=== PATIENT | male | born 1950 | race African-American/Black ===

== ENCOUNTER 2017-08-27 15:36 | Outpatient (CLI) | payer MEDICARE, OTHER ==
--- NOTE | 2017-08-27 16:17 | RAD ---
THREE VIEW LUMBAR SPINE SERIES: COMPARISON: 04/02/14. INDICATION: Low back pain. FINDINGS: There is multilevel degenerative change, limiting assessment on the basis of the provided lateral vie ws. Neutral, extension, flexion, and lateral views are submitted. Referencing 04/02/14 exam, alignm ent is grossly stable. There is no evidence for interval significant malalignment, and no significan t translational motion is seen. IMPRESSION: 1. No interval acute malalignment or translational motion. 2. Multilevel degenerative change, progressive, although limited in assessment by provided lateral v iews. POS: [facility]
== END 2017-08-27 15:37 | disposition home or self-care (01) ==
LOC: TBSIIMAG 15:36
PROVIDERS: ATTEND Neurological Surgery
DX: M48.061 Spinal stenosis, lumbar region without neurogenic claudication (principal); M54.5 Low back pain; M47.896 Other spondylosis, lumbar region
CPT/HCPCS: 72100

== ENCOUNTER 2018-07-01 11:18 | Inpatient (IN) | payer MEDICARE, OTHER ==
[2018-07-01 12:06] LABS: INR-International Normal Ratio 1.1; PTT 29.2 SEC (22.9-36.1)
--- NOTE | 2018-07-01 13:10 | RAD ---
AP VIEW ABDOMEN: HISTORY: Sigmoid volvulus. COMPARISON: Comparison is made to previous exam from earlier in the day on 07/01/2018. FINDINGS: AP view abdomen demonstrates radiopaque contrast in the ascending colon and rectum. The tortuous por tion of the sigmoid remains and is unchanged in shape. IMPRESSION: Abnormally dilated loop of upward migrating sigmoid colon remains and is unchanged. POS: [facility]
[2018-07-01] MEDS ORDERED: PROPOFOL 200 MG/20 ML VIAL ONE (16:02)
[2018-07-01] MEDS ORDERED: Ondansetron PF 4 MG/2 ML Vial ONE (16:02)
[2018-07-01] MEDS ORDERED: Lidocaine 1% PF 5 ML VIAL ONE (16:02)
[2018-07-01] MEDS ORDERED: Succinylcholine Chloride 20 MG/ML 10 ml SYRINGE FS ONE (16:02)
--- NOTE | 2018-07-01 16:14 | CON ---
DATE OF CONSULTATION: 07/01/2018 CHIEF COMPLAINT: Abdominal pain. HISTORY OF PRESENT ILLNESS: Mr. Fair is a 67-year-old man, who presented with acute onset of lower abdominal pain at 3 o'clock this morning. The pain became severe, so he went to the local emergency room, where a CT scan was performed. This showed dilated sigmoid colon with evidence of volvulus. He received pain medicine in the ER, he is feeling a bit better. He has had no nausea or vomiting. His last bowel movement was last night a couple of hours before onset of the pain. He has had no blood in the stool. He did have a colonoscopy back in November 2016 with a couple of small adenomas removed. The sigmoid colon was noted to be dilated at that time. PAST MEDICAL HISTORY: Chronic back pain, hypertension, sleep apnea, prostate cancer, and arthritis. PAST SURGICAL HISTORY: Prostate surgery, hernia repair, and knee surgery. FAMILY HISTORY: Negative for GI malignancy. SOCIAL HISTORY: No alcohol, tobacco, or drugs. ALLERGIES: PENICILLIN. MEDICATIONS: Prior to admission include: 1. Etodolac. 2. Flonase. 3. Krill oil. 4. Claritin. 5. Topiramate. 6. Aspirin. 7. Montelukast. REVIEW OF SYSTEMS: Negative x10 systems reviewed, except as stated in history of present illness. PHYSICAL EXAMINATION: VITAL SIGNS: Pulse 75, blood pressure 113/72, and temperature 97.8. GENERAL: He is in no acute distress. Alert and oriented x3. HEENT: Eyes have no scleral icterus. Oropharynx is clear without lesions. No cervical or supraclavicular lymphadenopathy. LUNGS: Clear to auscultation bilaterally. HEART: Regular rate and rhythm without murmur. ABDOMEN: Soft, nontender, and nondistended. Bowel sounds are present. EXTREMITIES: No lower extremity edema. Cranial nerves are grossly intact. LABORATORY DATA: White blood cell count 6.2, hemoglobin 16.2, platelets 197. INR 1.1. Creatinine 1.23. Bilirubin 0.4, AST 25, ALT 19, alkaline phosphatase 92, albumin is 4.4, and lipase 10. IMPRESSION: Acute lower abdominal pain with possible sigmoid volvulus. CT scan is suggestive of volvulus as this followup x-ray. He is not obstructed and he does not appear to have vascular involvement at this point. Of note, at time of colonoscopy in November 2016, he was noted to have a markedly dilated sigmoid colon at that time. RECOMMENDATIONS: We will plan flex sig now to detorse the volvulus. If endoscopy reveals no evidence of torsion and just chronically dilated colon, then we can consider referral for outpatient anorectal manometry and then colorectal consultation for possible resection at that point. If there is evidence of torsion by the colonoscopy now, then I will leave a decompression tube in place and he could likely proceed with colon resection more immediately. Job ID: [id number]
--- NOTE | 2018-07-01 16:26 | CON ---
DATE OF CONSULTATION: 07/01/2018 REQUESTING PHYSICIAN: Dr. Stewart Carlos. HISTORY: This is a 67-year-old man, who was seen earlier today at the emergency department in [place], [place]. The patient presented with complaint of insidious onset severe crampy abdominal pain. The pain reportedly started approximately 0300 hours and became more frequent, this time extending to the epigastrium. The patient denied any emesis, however, admitted some nausea. He denies any change in his bowel habits. The patient denies any fevers or chills. Workup included first abdominal x-ray followed by CT scan of the abdomen and pelvis, both of which were suggestive of acute sigmoid colon volvulus. The patient was transferred to [facility] in [place], [place], for upper level workup and care. At the time of my evaluation, the patient reports his pain now as 3/10 in contrast to 10/10 at maximum intensity. He has not passed any flatus since yesterday. Last bowel movement was also yesterday. He reports chronic constipation, requiring stool softeners at baseline. PAST MEDICAL HISTORY: Pertinent for essential hypertension and chronic constipation. He also has a history of chronic back pain. PAST SURGICAL HISTORY: Significant for right knee arthroplasty, prostatectomy, and left inguinal herniorrhaphy. SOCIAL HISTORY: The patient admits to occasional intake of ethanol in moderate amount. He denies any cigarette smoking or illicit drug abuse. CURRENT MEDICATIONS: 1. Claritin 10 mg p.o. daily for seasonal allergies. 2. He takes aspirin 81 mg p.o. daily. 3. Montelukast 10 mg p.o. daily. 4. Etodolac 200 mg p.o. b.i.d. 5. Topiramate 25 mg p.o. b.i.d. ALLERGIES: TO PENICILLIN. REVIEW OF SYSTEMS: Ten-point review of systems essentially unremarkable except as stated in past medical history and chief complaint. PHYSICAL EXAMINATION: GENERAL: This reveals a 67-year-old normally developed man, who is otherwise coherent and interactive and appears stated age. The patient is alert and oriented x3. He appears to be in no acute distress at the time of my evaluation. VITAL SIGNS: Include blood pressure 133/85, pulse is 78, respiratory rate is 27, temperature 97.8 degrees Fahrenheit, and oxygen saturation 99% on room air. HEENT: Reveals normocephalic and atraumatic. Pupils are equal, round, and reactive to light and accommodation. HEART: Reveals regular rate and rhythm. No murmurs or gallops auscultated. LUNGS: Clear to auscultation bilaterally. Breathing, regular and nonlabored. ABDOMEN: Soft with moderate tenderness to palpation, which is mostly in the left upper quadrant. He has no gross rebound tenderness present. Liver and spleen nonpalpable below costal margin. He has a reducible umbilical hernia with no associated tenderness. GENITOURINARY: Reveals bilateral descended testicles. Normal male genitalia. He has a reducible left inguinal hernia. No associated tenderness present. EXTREMITIES: Reveal 2+ radial and pedal pulses bilaterally. No ankle edema is present. NEUROLOGIC: Reveals no focal deficits present. LABORATORY FINDINGS: Includes a CBC from [place] with 6200 white blood cells, hemoglobin and hematocrit 16.2 and 48.9 respectively. Platelet count is 197,000. Metabolic profile; sodium 143, potassium is 4.1, chloride is 112, bicarb is 22, BUN 18, creatinine is 1.23, and glucose is 126. Lactic acid is 1.1. Total bilirubin is 0.4, AST and ALT are 25 and 19 respectively. PTT and INR noted at 29.2 seconds and 1.1 respectively. I have personally reviewed the CT scan of the abdomen and pelvis. This reviews markedly dilated sigmoid colon, which is abnormally rotated to the left upper quadrant. There is no significant free fluid or pneumoperitoneum present. Also noted is an umbilical and a left inguinal hernia with no associated inflammation to suggest incarceration. IMPRESSION: 1. Acute abdominal pain, likely secondary to sigmoid colon volvulus. 2. Non-incarcerated umbilical and left inguinal hernias. RECOMMENDATIONS: 1. I agree with endoscopic evaluation and possible detorsion of the sigmoid colon volvulus. 2. I recommend that if clear demarcation of the sigmoid colon volvulus is established with redundant sigmoid colon, a bowel prep followed by sigmoidectomy and primary anastomosis will be warranted. 3. If, however, the distention extends to the level of the rectum, preoperative evaluation of the rectum with manometry plus or minus rectal biopsy to evaluate the motility of the rectum, which could be the etiology of this patient's obvious sigmoid colonic pseudo-obstruction. 4. Above findings and recommendations discussed with the patient, who indicated understanding of information given. 5. I answered his questions. Thank you again, Dr. Carlos, for allowing me the opportunity to participate in the care of this patient. Job ID: [id number]
[2018-07-01] MEDS ORDERED: Ondansetron ODT 4 MG TAB PO PRN (17:12)
[2018-07-01] MEDS ORDERED: Acetaminophen 325 MG TAB PO PRN (17:12)
[2018-07-01 17:21] VITALS: BMI 33.2
[2018-07-01] MEDS ORDERED: Morphine 4 MG/ML VIAL SLOW IVP PRN ×2 (17:21)
[2018-07-01] MEDS ORDERED: traMADol HCl 50 MG TAB PO PRN (17:21)
[2018-07-01] MEDS ORDERED: Cepastat Lozenges 1 LOZ PO PRN (17:22)
--- NOTE | 2018-07-01 17:57 | HP ---
PRIMARY CARE PROVIDER: Dr Arevalo CHIEF COMPLAINT: Abdominal pain. HISTORY OF PRESENT ILLNESS: Mr. Fair is a 67-year-old male with history of hypertension, not currently on medications; migraines; seasonal allergies; obstructive sleep apnea with CPAP at home; prostate cancer status post resection , who presents to the emergency room with a complaint of abdominal pain. The patient reports that for the past couple of days, his stomach has been bothering him. However, at 7:45 this morning, it became excruciating. He reports he was unable to walk without significant pain. He reports the pain is in the middle of the stomach, describes it as burning sensation with associated nausea, but no vomiting. He rates it currently as a 2/10. However, early this morning, it was a 10/10. He has not taken any medications for the pain, denies any prior history, denies any precipitant or relieving factors. Over the past few days, he described it as a stomach ache in the middle of his stomach. In the emergency room, the patient underwent CT scan significant for possible sigmoid volvulus. General Surgery and GI were both consulted, the patient underwent flexible sigmoidoscopy with detorsion of the sigmoid colon as well and a decompression tube placed. Because of this, the patient requires monitoring and admission in the hospital. PAST MEDICAL HISTORY: 1. Chronic back pain. 2. Hypertension. 3. Obstructive sleep apnea with CPAP. 4. Prostate cancer, history of resection. 5. Arthritis. PAST SURGICAL HISTORY: 1. Prostatectomy. 2. Hernia repair. 3. Knee surgery. FAMILY HISTORY: Negative for GI malignancy. SOCIAL HISTORY: The patient is to Meghan, his surrogate decision maker. He is a full code. He denies alcohol, tobacco, or drugs. ALLERGIES: AMPICILLIN. MEDICATIONS: Medications are reconciled, however, he does not know the doses. 1. Etodolac twice daily. 2. Flonase daily. 3. Krill oil daily. 4. Claritin daily. 5. Topiramate takes two tablets, but unknown dose. 6. Aspirin 81 mg daily. 7. Montelukast daily. 8. An [id number] supplement, unknown name. REVIEW OF SYSTEMS: Positive for flushing, fevers, and sore throat. Negative for chest pain, difficulty breathing, and change in urine. All remaining review of systems is reviewed and negative. PHYSICAL EXAMINATION: VITAL SIGNS: T97 P70 R18 132/85 97% on RA. GENERAL: Awake, alert, responsive, in no apparent distress. Able to speak in full sentences. HEENT: Oral mucosa is pink and moist. NECK: Supple and nontender. LYMPHATICS: No palpable cervical or supraclavicular lymphadenopathy. LUNGS: Clear to auscultation bilateral. No audible wheezing, rhonchi, or rales. HEART: Normal S1 and S2. Regular rate and rhythm. No audible murmurs. ABDOMEN: Soft with present bowel sounds. Nontender, nondistended. EXTREMITIES: No clubbing, cyanosis, or edema. VASCULAR: 2+ dorsalis pedis pulses. PSYCH: Euthymic, linear, logical, goal-directed thought process. NEUROLOGIC: No focal deficits. SKIN: No visible rashes. DIAGNOSTIC DATA: An x-ray shows an abnormally dilated loop of upward migrating sigmoid colon. A CT abdomen and pelvis showed peripherally enhancing 1.6 cm hepatic mass and sigmoid volvulus and umbilical and left inguinal hernias. Labs; lactic acid 1.1. INR 1.1. CBC; 6.2, 16.2, 48.9, and 197. Chemistry; 143, 4.1, 112, 22, 18, 1.2, and 126. The patient underwent flexible sigmoidoscopy with detorsion and decompression tube in place with Dr. Carlos of GI today. IMPRESSION: 1. Dilated sigmoid colon, with concern for volvulus, status post flex sig with some detorsion and relief of symptoms. 2. Hepatic mass, unknown etiology, will need further workup in the outpatient setting. 3. Hypertension, not currently on medications. 4. Obstructive sleep apnea, on CPAP. 5. History of prostate cancer, status post prostatectomy. 6. Migraine headaches. 7. Seasonal allergies. 8. Chronic back pain and arthritis. PLAN: 1. Admission to the hospital. 2. The patient to be followed by Dr. Carlos of GI, with determination of further inpatient evaluation and/or surgical consideration. 3. We will continue his home medications when we have an accurate list of this. Discussed with RN the topiramate (she called [facility] in [place] and 25 mg BID ). Pt's to bring a list. 4. Manage the pain, monitor for any recurrence of symptoms including nausea. 5. We will order a CPAP. 6. Throat lozenges p.r.n. for sore throat. 7. DVT prophylaxis with pneumatic compression devices. 8. GI prophylaxis not indicated. 9. Code status is full. Surrogate decisionmaker is his . 10. Reviewed the plan of care with the patient and his . No questions or further needs at end of evaluation. 11. The patient is at high risk given age, comorbidities, and current presentation. Job ID: [id number] MTDD
[2018-07-01] MEDS: Topiramate 25 MG TAB PO SCH (21:58)
--- NOTE | 2018-07-01 22:35 | OP ---
DATE OF PROCEDURE: 07/01/2018 PROCEDURE: Flexible sigmoidoscopy with detorsion of sigmoid volvulus and placement of colonic decompression tube. PREOPERATIVE DIAGNOSIS: Suspected sigmoid volvulus. DESCRIPTION OF PROCEDURE: Informed consent was obtained from the patient. He was sedated with general anesthesia. The rectal exam was performed and was normal. There was soft formed stool in the rectal vault. The colonoscope was advanced to the descending colon. The rectal mucosa and distal sigmoid mucosa appeared unremarkable. There was some again formed soft stool throughout this area. The lumen of the colon appeared normal from 35 cm and then distally to the rectum. There was a sharp area of sudden dilation at 35 cm and proximal to that. The colonoscope was advanced well above this level, but could not be advanced all the way to the transverse colon. The scope just looped around in a very dilated area of colon. There was some torsion at the area of demarcation between the normal and dilated bowel. The dilated area of bowel resulted in a sharp turn that the scope just looped around and retroflexed back to get through. The colon remained dilated proximal to that and the scope could not be passed again all the way to the transverse colon. IMPRESSION: 1. Markedly dilated colon proximal to 35 cm with a sharp area of demarcation at the dilation site. There was some torsion of the bowel in this area, but it is difficult to say if this is truly a volvulus. The scope could not be passed all the way to the proximal if it is a volvulus. The colon was just dilated and did have sharp flexure that the scope could not be passed beyond. 2. The rectal and sigmoid colon distal to 35 cm appeared unremarkable. 3. Colonic decompression tube was left in place. RECOMMENDATIONS: 1. Monitor response to the flex sig with detorsion and placement of decompression tube. 2. I expect, he will ultimately require surgery. However, timing will depend on the clinical response to above. Job ID: [id number]
[2018-07-02 04:41] LABS: #Basophils 0.1 thou/uL (0.0-0.2); #Eosinphils 0.1 thou/uL (0.0-0.7); #Lymphocytes 2.1 thou/uL (1.20-3.40); #Monocytes 0.6 thou/uL (0.11-0.59); #Neutrophils 4.4 thou/uL (1.40-6.50); %Basophils 0.7 % (0.0-1.0); %Eosinophils 1.1 % (0.0-10.0); %Lymphocytes 29.4 % (21.0-51.0); %Monocytes 7.9 % (0.0-10.0); %Neutrophils 60.9 % (42.0-75.0); Hemoglobin 14.8 g/dL (14.0-18.0); Mean Corpuscular HGB CONC 33.7 g/dL (32.0-36.0); Mean Corpuscular Hemoglobin 30.1 pg (27.0-31.0); Mean Corpuscular Volume 89.4 fL (78.0-98.0); Mean Platelet Volume 8.8 fL (7.4-10.4); Platelet Count 186 thou/uL (130-400); RBC Distribution Width 12.9 % (11.5-14.5); Red Blood Cell (RBC) Count 4.93 mill/uL (4.70-6.10); White Blood Cell (WBC) Count 7.2 thou/uL (4.8-10.8)
[2018-07-02 04:57] LABS: Anion Gap 9 mmol/L (10-20); BUN (Urea Nitrogen) 14 mg/dL (8.4-25.7); Calc. Creatinine Clearance 81 mL/min (70-130); Calcium 9.2 mg/dL (7.8-10.44); Carbon Dioxide 24 mmol/L (23-31); Chloride 110 mmol/L (98-107); Estimated GFR-MDRD 75; Glucose 105 mg/dL (80-115); Potassium 3.5 mmol/L (3.5-5.1); Sodium 139 mmol/L (136-145)
--- NOTE | 2018-07-02 09:17 | PDOC.EVN ---
Event Note - Event Note Event Note: PCP - Dr Arevalo. Case d/w Residents.
[2018-07-02] MEDS: Topiramate 25 MG TAB PO SCH ×2 (09:42→20:20)
--- NOTE | 2018-07-02 09:51 | PDOC.FM ---
- Subjective Subjective: Pt states that his pain is much better this morning. He has minimal nausea. He denies BM overnight. Pt states his family is coming in later today and he will ask them to bring up his cpap. - Objective MAR Reviewed: Yes Vital Signs & Weight: Vital Signs (12 hours) Temp Pulse Resp BP Pulse Ox 07/02/18 07:31 97.6 F 73 20 124/81 96 07/02/18 04:00 98.3 F 73 20 115/76 96 07/02/18 00:07 98.5 F 72 16 124/83 96 07/01/18 22:00 95 Weight Weight 96.162 kg I&O: 07/01/18 07/02/18 07/03/18 06:59 06:59 06:59 Intake Total 610 Balance 610 Result Diagrams: 07/02/18 04:18 07/02/18 04:18 Phys Exam - Physical Examination Constitutional: NAD HEENT: moist MMs Neck: no JVD Respiratory: no wheezing, clear to auscultation bilateral Cardiovascular: RRR, no significant murmur Gastrointestinal: soft, no distention, positive bowel sounds mild tenderness in lower abdomen Musculoskeletal: no edema, pulses present Neurological: non-focal, normal sensation, moves all 4 limbs Psychiatric: normal affect, A&O x 3 Skin: normal turgor, cap refill <2 seconds Dx/Plan (1) Sigmoid volvulus Status: Acute (2) HTN (hypertension) Code(s): I10 - ESSENTIAL (PRIMARY) HYPERTENSION Status: Acute (3) MONIAC on CPAP Code(s): G47.33 - OBSTRUCTIVE SLEEP APNEA (ADULT) (PEDIATRIC); Z99.89 - DEPENDENCE ON OTHER ENABLING MACHINES AND DEVICES Status: Acute (4) Migraine headache Code(s): G43.909 - MIGRAINE, UNSP, NOT INTRACTABLE, WITHOUT STATUS MIGRAINOSUS Status: Acute (5) History of prostate cancer Code(s): Z85.46 - PERSONAL HISTORY OF MALIGNANT NEOPLASM OF PROSTATE Status: Acute (6) Chronic back pain Code(s): M54.9 - DORSALGIA, UNSPECIFIED; G89.29 - OTHER CHRONIC PAIN Status: Acute (7) Seasonal allergies Code(s): J30.2 - OTHER SEASONAL ALLERGIC RHINITIS Status: Acute - Plan Plan: This is a 67 yo male with a pmh HTN, MONICA on CPAP, hx of prostate cancer s/p prostectomy, and chronic back pain Sigmoid volvulus -Sigmoidoscopy by Dr. Carlos shows volvulus, s/p decompression tubing -Dr. Ramos consulted, likely for colon resection during this hospital stay -Pt stable this morning, pending GI/general surgery recommendations HTN -Lifestyle controlled -Will monitor MONICA -Asking family to bring CPAP tonight -Will order if they do not. Hepatic mass in liver on CT -Likely requires outpt work up Hx of prostate cancer s/p prostectomy Seasonal allergies Chronic back pain -Continue home norco
[2018-07-02] MEDS ORDERED: GoLYTELY 4,000 ml Bottle PO SCH (09:59)
--- NOTE | 2018-07-02 10:19 | RAD ---
TWO VIEWS OF THE ABDOMEN: COMPARISON: 07/01/2018. HISTORY: Possible volvulus. Status post colon tube replacement. FINDINGS: A single view of the abdomen shows a nonspecific, nonobstructed bowel gas pattern. A tube is seen al eren the left colon. Radiopaque material is seen throughout the colon to the level of the rectum. Th e small bowel is normal in caliber. IMPRESSION: 1. Nonobstructed bowel gas pattern. 2. Rectal tube is seen in the left colon. POS: [facility]
--- NOTE | 2018-07-02 11:57 | PRG ---
DATE OF SERVICE: 07/02/2018 SUBJECTIVE: The patient was seen this morning sitting up in bed status post flexible sigmoidoscopy with detorsion of sigmoid volvulus and placement of a colonic decompression tube yesterday by GI. GI did note that they were not able to pass the scope through a distal flexure and indicated surgical intervention may be indicated. The patient did have bowel movements and stool in the decompression tube at time of evaluation. He was tolerating a diet and reported pain was well controlled. Denied nausea, vomiting, or diarrhea. OBJECTIVE: VITAL SIGNS: Temperature 97.6, pulse 73, respirations 20, oxygen saturation 96% on room air, and blood pressure 124/81. GENERAL: Alert and well-appearing middle-aged male, sitting up in bed with decompression colonic tube in place. NEUROLOGIC: GCS is 15. Alert and oriented x3. Gross motor and sensation, intact. Pupils are equal, round, and reactive to light. PULMONARY: No signs of acute distress. Equal chest rise and fall. Lung moragn are clear bilaterally. HEART: Regular rate and rhythm. No murmurs, gallops, or rubs. GI: Abdomen is soft, nontender, and minimally distended with positive bowel sounds. Decompression rectal tube in place with light-colored stool in bag. EXTREMITIES: Gross motor and sensation, intact. 2+ pulses in all extremities. No swelling noted. LABORATORY FINDINGS: White blood cell count 7.2, hemoglobin 14.8, hematocrit 44.1, platelets 186. Sodium 139, potassium 3.5, chloride 110, carbon dioxide 24, BUN 14, creatinine 1.17. DIAGNOSTIC FINDINGS: Abdominal x-ray performed this morning demonstrates nonobstructive bowel gas pattern, and rectal tube is seen in the left colon. ASSESSMENT: 1. Sigmoid colon volvulus. 2. Non-incarcerated umbilical and left inguinal hernias. 3. History of hypertension, prostate cancer, and obstructive sleep apnea, on CPAP at home. RECOMMENDATIONS: The patient had a long discussion with Dr. Ramos and Danna this morning about operative management of his sigmoid volvulus as recommended by GI. The patient did call his and all of us spoke over the phone about the risks and the benefits associated with operative intervention. The patient did agree that he would like to move forward with the plan for OR tomorrow morning. We will start bowel preparation with GoLYTELY today and change the patient to a clear liquid diet at this time. The patient was advised that if the bowel prep could not be completed in its entirety, it is likely he will have a colostomy. He agreed and stated he understood this. We will continue pain management as previously ordered. The patient will be n.p.o. at midnight and will receive IV fluids until time of OR. The patient was seen and examined by Dr. Ramos this morning during rounds. Job ID: [id number]
--- NOTE | 2018-07-02 15:32 | PRG ---
DATE OF SERVICE: 07/02/2018 SUBJECTIVE: Mr. Katz is feeling better today. No significant abdominal pain. He tolerated solid diet last night. This was given inadvertently. He has been passing air and stool without difficulty from his rectum. PHYSICAL EXAMINATION: VITAL SIGNS: Temperature is 97.3, pulse 76, blood pressure 142/93. GENERAL: He is in no acute distress. Alert and oriented x3. LUNGS: Clear to auscultation bilaterally. HEART: Regular rate and rhythm without murmur. ABDOMEN: Soft and nondistended. Bowel sounds are present. EXTREMITIES: No lower extremity edema. IMPRESSION: Sigmoid volvulus status post detorsion with flexible sigmoidoscopy and placement of colonic decompression tube last night. RECOMMENDATIONS: He is undergoing a bowel prep with GoLYTELY today with anticipated partial colectomy tomorrow by General Surgery. Job ID: [id number]
--- NOTE | 2018-07-02 17:32 | HP ---
I have examined the patient. I have discussed the case with Dr. Jeremy Phelps and agree with his assessment and plan. HISTORY OF PRESENT ILLNESS: Briefly, Mr. Fair is a very pleasant 67-year-old black male, who awoke this morning around 4 o'clock with moderately severe abdominal pain. The pain became so severe that he eventually presented to the [place] [facility], where imaging demonstrated a sigmoid volvulus. He was transported to our emergency room. He was first seen by Dr. Stewart Carlos, the GI service underwent sigmoidoscopy with reduction of his sigmoid volvulus. We have consulted surgery and it is anticipated that he will be taken for surgery in the morning for further treatment to prevent future volvulus. PHYSICAL EXAMINATION: GENERAL: Late this evening, Mr. Fair is awake, alert, very cheerful, no distress. VITAL SIGNS: His blood pressure is currently 120/91, his room air oxygen saturation is 97%, respirations 20, pulse rate 87 and regular, and he is afebrile. As stated, he is awake, alert, pleasant, no distress. EAR, NOSE, AND THROAT: Moist mucous membranes. NECK: Supple. CARDIAC: Heart rhythm is regular without gallop or murmur. LUNGS: Clear. No rales, rhonchi, or wheezes. No distress. ABDOMEN: Currently flat, benign, and soft. No guarding, rebound, or rigidity noted. EXTREMITIES: Moves all extremities well. He has no edema. NEUROLOGIC: No focal deficits. LABORATORY DATA: CBC; white count is 7200, hemoglobin 14.8, hematocrit 44.1 with an MCV of 89. Chemistries; his sodium is 139, potassium 3.5, chloride 110, bicarb 24, BUN 14, creatinine 1.17. His INR is 1.1. ASSESSMENT: Sigmoid volvulus, status post reduction by the GI service with surgery pending in the morning. PLAN: We will follow the patient with Surgery. He appears to be a low risk for surgical complication. Job ID: [id number]
[2018-07-03] MEDS: Sodium Chloride 0.9% 1,000 ML IV SCH ×2 (00:05→09:24)
--- NOTE | 2018-07-03 05:36 | PDOC.FM ---
- Subjective Subjective: Doing well this morning. He reports clear to cloudy BM this AM. He reports mild lower abdominal pain occasionally. - Objective MAR Reviewed: Yes Vital Signs & Weight: Vital Signs (12 hours) Temp Pulse Resp BP Pulse Ox 07/03/18 04:00 97.6 F 77 20 118/77 99 07/03/18 00:25 97.6 F 72 20 123/84 96 07/02/18 20:05 97 07/02/18 20:00 98.6 F 77 20 117/84 97 Weight Weight 96.162 kg I&O: 07/01/18 07/02/18 07/03/18 06:59 06:59 06:59 Intake Total 610 Balance 610 Result Diagrams: 07/02/18 04:18 07/02/18 04:18 Phys Exam - Physical Examination Constitutional: NAD HEENT: moist MMs Neck: no JVD Respiratory: no wheezing, clear to auscultation bilateral Cardiovascular: RRR, no significant murmur Gastrointestinal: soft, no distention, positive bowel sounds mild tenderness to palpation of lower abdomen diffusely Musculoskeletal: no edema, pulses present Neurological: normal sensation, moves all 4 limbs Psychiatric: normal affect, A&O x 3 Skin: cap refill <2 seconds Dx/Plan (1) Sigmoid volvulus Status: Acute (2) HTN (hypertension) Code(s): I10 - ESSENTIAL (PRIMARY) HYPERTENSION Status: Acute (3) MONICA on CPAP Code(s): G47.33 - OBSTRUCTIVE SLEEP APNEA (ADULT) (PEDIATRIC); Z99.89 - DEPENDENCE ON OTHER ENABLING MACHINES AND DEVICES Status: Acute (4) Migraine headache Code(s): G43.909 - MIGRAINE, UNSP, NOT INTRACTABLE, WITHOUT STATUS MIGRAINOSUS Status: Acute (5) History of prostate cancer Code(s): Z85.46 - PERSONAL HISTORY OF MALIGNANT NEOPLASM OF PROSTATE Status: Acute (6) Chronic back pain Code(s): M54.9 - DORSALGIA, UNSPECIFIED; G89.29 - OTHER CHRONIC PAIN Status: Acute (7) Seasonal allergies Code(s): J30.2 - OTHER SEASONAL ALLERGIC RHINITIS Status: Acute - Plan Plan: This is a 67 yo male with a pmh HTN, MONICA on CPAP, hx of prostate cancer s/p prostectomy, and chronic back pain Sigmoid volvulus -Sigmoidoscopy by Dr. Carlos shows volvulus, s/p decompression tubing -Dr. Ramos consulted, likely for colon resection during this hospital stay -Pt going for surgery this morning HTN -Lifestyle controlled -Will monitor MONICA Hepatic mass in liver on CT -Likely requires outpt work up Hx of prostate cancer s/p prostectomy Seasonal allergies Chronic back pain -Morphine for pain
[2018-07-03 07:37] LABS: #Basophils 0.1 thou/uL (0.0-0.2); #Eosinphils 0.1 thou/uL (0.0-0.7); #Lymphocytes 1.9 thou/uL (1.20-3.40); #Monocytes 0.5 thou/uL (0.11-0.59); #Neutrophils 3.5 thou/uL (1.40-6.50); %Basophils 1.3 % (0.0-1.0); %Lymphocytes 30.9 % (21.0-51.0); %Monocytes 7.7 % (0.0-10.0); %Neutrophils 58.1 % (42.0-75.0); Hemoglobin 15.3 g/dL (14.0-18.0); Mean Corpuscular HGB CONC 33.7 g/dL (32.0-36.0); Mean Corpuscular Hemoglobin 30.1 pg (27.0-31.0); Mean Corpuscular Volume 89.4 fL (78.0-98.0); Mean Platelet Volume 9.1 fL (7.4-10.4); Platelet Count 183 thou/uL (130-400); Red Blood Cell (RBC) Count 5.08 mill/uL (4.70-6.10); White Blood Cell (WBC) Count 6.1 thou/uL (4.8-10.8)
[2018-07-03 07:52] LABS: INR-International Normal Ratio 1.1; Prothrombin Time 14.7 SEC (12.0-14.7)
[2018-07-03 07:54] LABS: Anion Gap 12 mmol/L (10-20); BUN (Urea Nitrogen) 12 mg/dL (8.4-25.7); Calc. Creatinine Clearance 82 mL/min (70-130); Calcium 9.3 mg/dL (7.8-10.44); Carbon Dioxide 24 mmol/L (23-31); Chloride 109 mmol/L (98-107); Estimated GFR-MDRD 76; Glucose 88 mg/dL (80-115); Magnesium 2.1 mg/dL (1.6-2.6); Phosphorus 2.5 mg/dL (2.3-4.7); Potassium 3.8 mmol/L (3.5-5.1); Sodium 141 mmol/L (136-145)
[2018-07-03] MEDS ORDERED: Potassium Phosphate 30 MMOL in Sodium Chloride 0.9% 500 ML IVPB SCH (08:15)
[2018-07-03] MEDS: Topiramate 25 MG TAB PO SCH ×2 (09:24→21:47)
--- NOTE | 2018-07-03 11:21 | PRG ---
DATE OF SERVICE: 07/03/2018 Mr. Fair is in good spirits this morning. He is about to be taken to surgery. Otherwise, there has been no change in his condition clinically and we will continue to follow with the surgery team postop. Job ID: [id number]
[2018-07-03] MEDS ORDERED: Meropenem 2 GM in Admixture Fee 1 EACH IVPB SCH (12:00)
[2018-07-03] MEDS ORDERED: Meropenem 2 GM, Admixture Fee 1 EACH in Sodium Chloride 0.9% 100 ML IVPB SCH (12:30)
[2018-07-03] MEDS ORDERED: Fentanyl 250 MCG/5 ML VIAL ONE (13:00)
[2018-07-03] MEDS ORDERED: Lidocaine 1% PF 5 ML VIAL ONE (16:19)
[2018-07-03] MEDS ORDERED: Rocuronium Bromide 10 MG/ML (10ML VIAL) ONE (16:19)
[2018-07-03] MEDS ORDERED: Glycopyrrolate 0.2 MG/ML 5 ML SYRINGE ONE (16:19)
[2018-07-03] MEDS ORDERED: PROPOFOL 200 MG/20 ML VIAL ONE (16:19)
[2018-07-03] MEDS ORDERED: Vecuronium 10 MG VIAL ONE (16:19)
[2018-07-03] MEDS ORDERED: Ondansetron PF 4 MG/2 ML Vial ONE (16:19)
[2018-07-03] MEDS ORDERED: ePHEDrine 50 MG/ML VIAL ONE (16:19)
[2018-07-03] MEDS ORDERED: PHENYLEPHRINE-NS 100 MCG/ML 10 ML SYRINGE ONE (16:19)
[2018-07-03] MEDS ORDERED: SUGAMMADEX SODIUM 500 MG/5 ML VIAL ONE (16:22)
[2018-07-03] MEDS ORDERED: Promethazine HCl 25 MG/ML VIAL IM PRN ×2 (16:36→17:49)
[2018-07-03] MEDS ORDERED: Promethazine HCl 25 MG/ML VIAL SLOW IVP PRN (16:36)
[2018-07-03] MEDS ORDERED: HYDROmorphone 2 MG/ML VIAL SLOW IVP PRN (16:36)
[2018-07-03] MEDS ORDERED: Ondansetron HCl/PF 4 MG/2 ML Vial IVP PRN (16:36)
[2018-07-03] MEDS ORDERED: diphenhydrAMINE 50 MG/ML VIAL IVP PRN (17:49)
[2018-07-03] MEDS ORDERED: Naloxone HCl 0.4 mg/ml Vial IV PRN (17:49)
[2018-07-03] MEDS ORDERED: diphenhydrAMINE 50 MG/ML VIAL IM PRN (17:49)
[2018-07-03] MEDS ORDERED: diphenhydrAMINE 25 MG CAP PO PRN (17:49)
[2018-07-03] MEDS ORDERED: Zolpidem Tartrate 5 MG TAB PO PRN (17:49)
[2018-07-03] MEDS ORDERED: Ondansetron PF 4 MG/2 ML Vial IVP PRN (17:49)
--- NOTE | 2018-07-03 17:57 | OP ---
DATE OF PROCEDURE: 07/03/2018 PREOPERATIVE DIAGNOSIS: Acute large bowel obstruction secondary to sigmoid colon volvulus, status post colonoscopy with reduction. POSTOPERATIVE DIAGNOSIS: Acute large bowel obstruction secondary to sigmoid colon volvulus, status post colonoscopy with reduction. OPERATIONS PERFORMED: 1. Exploratory laparotomy. 2. Sigmoidectomy with primary colocolostomy. ANESTHESIA: General endotracheal. ESTIMATED BLOOD LOSS: 50 mL. FLUIDS GIVEN: 2000 mL of crystalloids. COUNTS: Sponge and instrument count was verified as correct x2. COMPLICATIONS: None apparent at the time of operation. INDICATIONS FOR OPERATION: This is a 67-year-old man who presented with acute large bowel obstruction secondary to sigmoid colon volvulus. The patient underwent endoscopy where a redundant sigmoid colon was encountered. The endoscopist was able to reduce the volvulus. However, I was unable to make it past the splenic flexure. The patient was brought to the operating room for exploration. Findings are consistent with a markedly dilated distal, transverse, and proximal descending colon. DESCRIPTION OF OPERATION: Informed consent was obtained for the patient. He was brought to the operating room and placed in supine position. Following general anesthesia, he patient was placed in a lithotomy position. A Quevedo catheter was inserted and placed to bedside drain. Nasogastric tube was inserted and placed to wall suction. Abdomen was sterilely prepped and draped in usual fashion. A midline incision was made using #10 scalpel. Incision was carried through subcutaneous tissues maintaining hemostasis using cautery. The fascia incised in midline, exposing the peritoneum beneath, which was grasped x2 with hemostats. Peritoneal cavity was sharply entered using Metzenbaum scissors. The incision was extended superiorly and inferiorly. Bookwalter retractor was put in place again exposure. Small bowel was then run from ligament of Treitz down to the terminal ileum. No pathology is identified here. Large intestine was inspected from the cecum through the ascending, transverse colon, down to the level of the distal transverse colon where merely bowel was noted to be markedly dilated, passed the splenic flexure all the way down to the proximal sigmoid colon where distal to this normal caliber colon was again encountered. The left colon was noted therefore to be markedly redundant. Return was made at this juncture to proceed with partial colectomy to reduce the redundancy. To achieve this, the left colon was mobilized along the white line of Toldt using Metzenbaum scissors. The splenic flexure was taken down. I created a rent through the mesentery of the proximal sigmoid colon as well as the mesentery of the proximal descending colon. Through these, VANESSA stapler was introduced and the bowel was divided. Mesentery of the left colon is certainly divided using LigaSure device with good hemostasis. The specimen was passed off the operative field followed by transmission of Pathology. At this juncture, a feeding nasojejunal tube was inserted by anesthesia. The tip of which was palpated by myself within the gastric lumen. I manipulated the tip of this catheter into proximal small bowel without resistance. We then proceeded to re-establish bowel continuity. To achieve this, the staple ends of the colon were approximated in a side-to- side fashion antimesenteric border using interrupted sutures of 3-0 silk. Enterotomies were then made at both apices, through which free ends of VANESSA stapler were introduced and functional end-to-end, but anatomic [id number] colocolostomy was perfected. The common enterotomies were closed using two staple loads of VANESSA stapler. At this juncture, all sponges and instruments were removed and accounted for. The abdominal cavity was copiously irrigated with saline, noting good hemostasis in place. #19 Sushil drain was introduced into the pelvis and allowed to exit the abdominal cavity through a separate stab incision. The drain was secured to anterior abdominal wall using 2-0 silk suture. A large piece of Seprafilm was placed in the deep pelvis. Small bowel is returned to normal anatomic location. A second sheet of Seprafilm was placed over the remainder of the small bowel and omentum was drawn over the remainder of the viscera. The fascia was approximated in the midline using a running stitch of #1 double-stranded PDS. Subcutaneous tissues were irrigated clear with saline solution with 3 L of pulse lavage of sterile saline. Good hemostasis was noted in place. Deep tissues were approximated using interrupted sutures of 3-0 Vicryl. The skin was closed with pilar. Sterile dressings were applied. The patient tolerated the operation without any apparent complication and was returned to the recovery room in satisfactory condition. Job ID: [id number] [facility]
[2018-07-03] MEDS ORDERED: Midazolam HCl 2 mg/2 ml Vial SLOW IVP SCH (18:00)
[2018-07-03] MEDS ORDERED: Ketorolac Tromethamine 30 MG/ML VIAL IVP SCH (18:00)
[2018-07-03] MEDS ORDERED: Communication Order-Pharmacy FS SCH (18:00)
[2018-07-03] MEDS ORDERED: Acetaminophen 1,000 MG in Premix Bag 1 BAG IVPB SCH (18:00)
[2018-07-03] MEDS: Acetaminophen 1,000 MG in Premix Bag 1 BAG IVPB SCH ×2 (19:01→23:22)
[2018-07-03] MEDS: Ketorolac Tromethamine 30 MG/ML VIAL IVP SCH ×2 (19:02→23:22)
[2018-07-03] MEDS: HYDROmorphone 10 mg/100 ml CADD IVPB PRN (19:06)
[2018-07-03] MEDS: MEROPENEM 1 GM/50 ML 1 GM in Premix Bag 1 BAG IVPB SCH (21:48)
[2018-07-04] MEDS: Sodium Chloride 0.9% 1,000 ML IV SCH ×4 (02:46→08:04)
[2018-07-04] MEDS: Acetaminophen 1,000 MG in Premix Bag 1 BAG IVPB SCH ×3 (05:21→17:52)
[2018-07-04] MEDS: MEROPENEM 1 GM/50 ML 1 GM in Premix Bag 1 BAG IVPB SCH ×3 (05:21→21:01)
[2018-07-04] MEDS: Ketorolac Tromethamine 30 MG/ML VIAL IVP SCH ×3 (05:22→17:53)
--- NOTE | 2018-07-04 05:53 | PDOC.FM ---
- Subjective Subjective: States he is feeling much better than yesterday, pain has improved. Most of his pain is near incision sites. States he has no appetite yet. Otherwise no complaints. - Objective Vital Signs & Weight: Vital Signs (12 hours) Temp Pulse Resp BP Pulse Ox 07/04/18 04:02 98.2 F 91 18 123/84 94 L 07/04/18 00:25 97.9 F 99 18 134/83 94 L 07/03/18 20:05 98.2 F 102 H 18 123/81 95 07/03/18 18:50 101 H 16 137/86 07/03/18 18:20 92 20 122/80 07/03/18 18:10 89 16 129/83 Weight Weight 96.162 kg I&O: 07/02/18 07/03/18 07/04/18 06:59 06:59 06:59 Intake Total 610 60 Balance 610 60 Result Diagrams: 07/04/18 06:05 07/04/18 06:05 Phys Exam - Physical Examination Constitutional: NAD HEENT: moist MMs Neck: no nodes, supple Respiratory: no wheezing, clear to auscultation bilateral Cardiovascular: RRR, no significant murmur Gastrointestinal: soft, no distention, positive bowel sounds minimally tender to palpation near incision sites, no rebound or guarding Musculoskeletal: no edema, pulses present Neurological: moves all 4 limbs Psychiatric: normal affect, A&O x 3 Skin: normal turgor, cap refill <2 seconds Dx/Plan (1) Sigmoid volvulus Status: Acute (2) HTN (hypertension) Code(s): I10 - ESSENTIAL (PRIMARY) HYPERTENSION Status: Chronic (3) History of prostate cancer Code(s): Z85.46 - PERSONAL HISTORY OF MALIGNANT NEOPLASM OF PROSTATE Status: Chronic (4) Migraine headache Code(s): G43.909 - MIGRAINE, UNSP, NOT INTRACTABLE, WITHOUT STATUS MIGRAINOSUS Status: Chronic (5) MONICA on CPAP Code(s): G47.33 - OBSTRUCTIVE SLEEP APNEA (ADULT) (PEDIATRIC); Z99.89 - DEPENDENCE ON OTHER ENABLING MACHINES AND DEVICES Status: Chronic (6) Seasonal allergies Code(s): J30.2 - OTHER SEASONAL ALLERGIC RHINITIS Status: Chronic (7) Chronic back pain Code(s): M54.9 - DORSALGIA, UNSPECIFIED; G89.29 - OTHER CHRONIC PAIN Status: Chronic - Plan Plan: This is a 67 yo male with a pmh HTN, MONICA on CPAP, hx of prostate cancer s/p prostectomy, and chronic back pain Sigmoid volvulus 1 day s/p sigmoidectomy -Sigmoidoscopy by Dr. Carlos shows volvulus, s/p decompression -Dr. Ramos General Surgery consulted, appreciate recommendations - 07/03 sigmoidectomy with colocolostomy -Pain well controlled with tylenol, ketorolac, hydromorphone -IV Meropenem -NG suction in place -MIVF NS @ 125 ml/hr -Appreciate general surgery recommendations HTN -Lifestyle controlled -Will monitor MONICA Hepatic mass in liver on CT -CT in [place], 1.6 cm peripherally enhancing liver mass -Likely requires outpt work up Hx of prostate cancer s/p prostectomy Seasonal allergies Chronic back pain -Morphine for pain Hx Headaches -continue topiramate PCP: Mickey Ppx: ADELEs Addendum - Attending - Attending Attestation Date/Time: 07/04/18 [id number] I personally evaluated the patient and discussed the management with Dr. Eliud Grewal I agree with the History, Examination, Assessment and Plan documented above with any addition or exceptions noted below. POD # 1 patient stable at present advance per GS recommendations.
[2018-07-04 06:32] LABS: #Lymphocytes 1.3 thou/uL (1.20-3.40); #Monocytes 0.8 thou/uL (0.11-0.59); #Neutrophils 9.7 thou/uL (1.40-6.50); %Basophils 0.2 % (0.0-1.0); %Eosinophils 0.1 % (0.0-10.0); %Lymphocytes 10.7 % (21.0-51.0); Hemoglobin 14.9 g/dL (14.0-18.0); Mean Corpuscular HGB CONC 33.5 g/dL (32.0-36.0); Mean Corpuscular Hemoglobin 29.8 pg (27.0-31.0); Platelet Count 195 thou/uL (130-400); RBC Distribution Width 12.9 % (11.5-14.5); White Blood Cell (WBC) Count 11.8 thou/uL (4.8-10.8)
[2018-07-04 06:50] LABS: Anion Gap 10 mmol/L (10-20); BUN (Urea Nitrogen) 11 mg/dL (8.4-25.7); Calc. Creatinine Clearance 93 mL/min (70-130); Calcium 8.3 mg/dL (7.8-10.44); Carbon Dioxide 22 mmol/L (23-31); Chloride 110 mmol/L (98-107); Estimated GFR-MDRD 88; Glucose 136 mg/dL (80-115); Magnesium 1.8 mg/dL (1.6-2.6); Phosphorus 2.2 mg/dL (2.3-4.7); Potassium 3.8 mmol/L (3.5-5.1); Sodium 138 mmol/L (136-145)
[2018-07-04] MEDS ORDERED: Magnesium 2 GM/50 ML 2 GM in Premix Bag 1 BAG IVPB SCH (07:45)
[2018-07-04] MEDS ORDERED: Potassium Phosphate 15 MMOL, Magnesium Sulfate 2 GM in Sodium Chloride 0.9% 250 ML 250 ML IVPB SCH (08:00)
[2018-07-04] MEDS: Topiramate 25 MG TAB PO SCH ×2 (09:34→21:00)
--- NOTE | 2018-07-04 12:54 | PRG ---
DATE OF SERVICE: 07/04/2018 SUBJECTIVE: Mr. Fair underwent a colon resection yesterday. He has some pain after the procedure, but today he is feeling much better. He has an NG tube in place. He has been up and ambulating. OBJECTIVE: VITAL SIGNS: He is afebrile, pulse is 92, blood pressure 137/80. ABDOMEN: Soft, nontender, and nondistended. His bowel sounds are quiet. He has not passed flatus yet. IMPRESSION: Sigmoid volvulus with redundant left colon, status post resection. RECOMMENDATIONS: The patient is doing well postoperatively. He is ambulating. Postoperative management per General Surgery regarding diet and then the NG tube will be removed. Job ID: [id number]
--- NOTE | 2018-07-04 13:37 | PRG ---
DATE OF SERVICE: 07/04/2018 SUBJECTIVE: This is a 67-year-old man, whom we were consulted on for sigmoid volvulus and is status post partial reduction with flexible sigmoidoscopy and postop day #1 for ex lap with sigmoidectomy with primary colocolostomy. No acute events overnight. The patient still pending flatus or bowel movement. Currently, he has placement of a Dobbhoff, receiving feeds and also a NG tube for colonic decompression. Today, denies any abdominal pain, nausea, vomiting, or diarrhea. OBJECTIVE: VITAL SIGNS: Temperature 97.6, pulse 92, respiration 18, O2 saturation 98 on room air, and blood pressure 137/80. GENERAL: The patient is resting comfortably in bed. He has presence of Dobbhoff through right naris and NG tube in the left. CARDIOVASCULAR: Regular rate and rhythm. No rubs, murmurs, or gallops. ABDOMEN: Presence of ventral midline incision with presence of pilar. No signs of drainage or infection. Also presence of left abdominal drain tube with serosanguinous fluid draining. Normoactive bowel sounds. Nontender to palpation. EXTREMITIES: Moves all four extremities, neurovascularly intact. LABORATORY DATA: Potassium 3.8, chloride 110, carbon dioxide 22, creatinine 1.02. GFR 88. Phosphorus 2.2, magnesium 1.8. WBC 11.8. DIAGNOSTIC IMAGING: There is no new diagnostic imaging to review today. ASSESSMENT: 1. Sigmoid colon volvulus, status post exploratory laparotomy with sigmoidectomy and primary colocolostomy, postop day #1. 2. Nonincarcerated umbilical and left inguinal hernia. 3. History of hypertension, prostate cancer, and obstructive sleep apnea on CPAP at home. 4. Hypokalemia. 5. Hypophosphatemia. 6. Hypomagnesemia. PLAN: 1. We will discontinue Dobbhoff, and start the patient on full liquid diet. Advance as tolerated. 2. Continue bowel regimen and monitoring for return of bowel function. 3. Continue current pain regimen, will control. 4. Encourage use of ICS, wean O2 as tolerated. 5. We will discontinue Quevedo. 6. We will replace potassium, phosphorus and magnesium. 7. We will discontinue fluids since the patient will be started on diet. May need to restart if the patient is unable to tolerate diet. The patient was seen and assessed by Dr. Hernandez, who agrees with the plan above. Job ID: [id number] [facility]
[2018-07-05] MEDS: Ketorolac Tromethamine 30 MG/ML VIAL IVP SCH ×4 (00:05→18:04)
[2018-07-05] MEDS: HYDROmorphone 10 mg/100 ml CADD IVPB PRN (03:13)
[2018-07-05] MEDS: MEROPENEM 1 GM/50 ML 1 GM in Premix Bag 1 BAG IVPB SCH (05:20)
--- NOTE | 2018-07-05 06:25 | PDOC.FM ---
- Subjective Subjective: Feeling well this morning. Reports some bowel sounds, but no flatus yet. Voiding without difficulty. Ambulated yesterday. Pain is well controlled. Doing well with the full liquid diet. Continues to use the incentive spirometer. - Objective Vital Signs & Weight: Vital Signs (12 hours) Temp Pulse Resp BP Pulse Ox 07/05/18 04:00 98.6 F 92 18 137/80 94 L 07/05/18 03:39 94 L 07/05/18 00:00 98.9 F 91 17 135/83 94 L 07/04/18 21:37 94 L 07/04/18 20:00 98.4 F 108 H 18 137/75 94 L Weight Admit Weight 96.162 kg Weight 96.162 kg I&O: 07/03/18 07/04/18 07/05/18 06:59 06:59 06:59 Intake Total 60 2610 Output Total 1800 910 Balance -1740 1700 Result Diagrams: 07/05/18 05:58 07/05/18 05:58 Phys Exam - Physical Examination Constitutional: NAD HEENT: moist MMs, sclera anicteric, oral pharynx no lesions Respiratory: no wheezing, clear to auscultation bilateral Cardiovascular: RRR, no significant murmur Gastrointestinal: soft, no distention, positive bowel sounds Musculoskeletal: no edema, pulses present Neurological: moves all 4 limbs Psychiatric: normal affect, A&O x 3 Dx/Plan (1) Sigmoid volvulus Status: Acute (2) HTN (hypertension) Code(s): I10 - ESSENTIAL (PRIMARY) HYPERTENSION Status: Chronic (3) History of prostate cancer Code(s): Z85.46 - PERSONAL HISTORY OF MALIGNANT NEOPLASM OF PROSTATE Status: Chronic (4) Migraine headache Code(s): G43.909 - MIGRAINE, UNSP, NOT INTRACTABLE, WITHOUT STATUS MIGRAINOSUS Status: Chronic (5) MONICA on CPAP Code(s): G47.33 - OBSTRUCTIVE SLEEP APNEA (ADULT) (PEDIATRIC); Z99.89 - DEPENDENCE ON OTHER ENABLING MACHINES AND DEVICES Status: Chronic (6) Seasonal allergies Code(s): J30.2 - OTHER SEASONAL ALLERGIC RHINITIS Status: Chronic (7) Chronic back pain Code(s): M54.9 - DORSALGIA, UNSPECIFIED; G89.29 - OTHER CHRONIC PAIN Status: Chronic - Plan Plan: This is a 67 yo male with a pmh HTN, MONICA on CPAP, hx of prostate cancer s/p prostectomy, and chronic back pain POD #2 s/p sigmoidectomy 2/2 Sigmoid volvulus -Sigmoidoscopy by Dr. Carlos shows volvulus, s/p decompression -Dr. Ramos General Surgery consulted, appreciate recommendations - 07/03 sigmoidectomy with colocolostomy -Pain well controlled with tylenol, ketorolac, hydromorphone -IV Meropenem per GS -Advance diet per GS recommendations -Incentive spirometry at bedside Hypophosphatemia -Phosphate 1.4 HTN -Lifestyle controlled -Will monitor MONICA Hepatic mass in liver on CT -CT in [place], 1.6 cm peripherally enhancing liver mass -Likely requires outpt work up Hx of prostate cancer s/p prostectomy Seasonal allergies Chronic back pain -Morphine for pain Hx Headaches -continue topiramate PCP: Mickey Ppx: Lovenox, SCDs Dispo: Pending GI recommendations Addendum - Attending - Attending Attestation Date/Time: 07/05/181902 I personally evaluated the patient and discussed the management with Dr. Weber I agree with the History, Examination, Assessment and Plan documented above with any addition or exceptions noted below.POD #2 patient progressing well.
[2018-07-05 06:49] LABS: #Eosinphils 0.2 thou/uL (0.0-0.7); #Lymphocytes 1.1 thou/uL (1.20-3.40); #Monocytes 0.6 thou/uL (0.11-0.59); #Neutrophils 6.5 thou/uL (1.40-6.50); %Basophils 0.4 % (0.0-1.0); %Eosinophils 1.9 % (0.0-10.0); %Lymphocytes 13.6 % (21.0-51.0); %Monocytes 6.8 % (0.0-10.0); %Neutrophils 77.3 % (42.0-75.0); Hemoglobin 13.5 g/dL (14.0-18.0); Mean Corpuscular HGB CONC 33.6 g/dL (32.0-36.0); Mean Corpuscular Hemoglobin 30.1 pg (27.0-31.0); Mean Corpuscular Volume 89.8 fL (78.0-98.0); Mean Platelet Volume 9.6 fL (7.4-10.4); Platelet Count 163 thou/uL (130-400); RBC Distribution Width 13.3 % (11.5-14.5); Red Blood Cell (RBC) Count 4.48 mill/uL (4.70-6.10); White Blood Cell (WBC) Count 8.4 thou/uL (4.8-10.8)
[2018-07-05 07:20] LABS: Anion Gap 9 mmol/L (10-20); BUN (Urea Nitrogen) 9 mg/dL (8.4-25.7); Calc. Creatinine Clearance 98 mL/min (70-130); Calcium 8.5 mg/dL (7.8-10.44); Carbon Dioxide 21 mmol/L (23-31); Chloride 110 mmol/L (98-107); Estimated GFR-MDRD Greater than 90; Glucose 94 mg/dL (80-115); Magnesium 2.1 mg/dL (1.6-2.6); Phosphorus 1.4 mg/dL (2.3-4.7); Potassium 3.5 mmol/L (3.5-5.1); Sodium 136 mmol/L (136-145)
[2018-07-05] MEDS ORDERED: Potassium Phosphate 30 MMOL in Sodium Chloride 0.9% 500 ML IVPB SCH (08:45)
[2018-07-05] MEDS: Topiramate 25 MG TAB PO SCH ×2 (08:49→21:11)
[2018-07-05] MEDS: Enoxaparin Sodium 40 MG/0.4 ML SYRINGE SC SCH (08:49)
[2018-07-05] MEDS ORDERED: Potassium Phosphate 30 MMOL in Sodium Chloride 0.9% 250 ML 250 ML IVPB SCH (09:15)
--- NOTE | 2018-07-05 14:03 | PRG ---
DATE OF SERVICE: 07/05/2018 SUBJECTIVE: This is a 67-year-old man, whom we were consulted on for sigmoid volvulus with a redundant colon and he is postop day #2 for ex lap with sigmoidectomy with primary colocolostomy. No acute events overnight. Yesterday , the patient was able to tolerate a full liquid diet. Still pending flatus or bowel movement. Currently, he has NG tube in place with Dobbhoff discontinued yesterday. Today, he denies any abdominal pain, nausea, or vomiting. OBJECTIVE: VITAL SIGNS: Temp 99, pulse 101, respirations 18, O2 saturation 93 % on room air, BP 138/91. GENERAL: Resting comfortably in bed, sitting up. No signs of acute distress. CARDIOVASCULAR: Regular rate and rhythm. No murmurs, rubs, or gallops. ABDOMEN: Presence of ventral midline incisions with presence of pilar. No sign of drainage or infection. Presence of left pigtail catheter with serosanguineous fluid draining. Normal active bowel sounds. Nontender to palpation. EXTREMITIES: Moves all four extremities, neurovascularly intact. LABORATORY DATA: WBC 8.4, hemoglobin 13.5, hematocrit 40.2, MCV 89.8, neutrophils 77.3. Sodium 136, potassium 3.5, carbon dioxide 21, chloride 110, calcium 8.5, phosphorus 1.4, magnesium 2.1. IMAGING: No new imaging to review today. ASSESSMENT: 1. Sigmoid colon volvulus, postop day #2 status post ex lap with sigmoidectomy with primary colocolostomy. 2. Non-incarcerated umbilical and left inguinal hernia. 3. History of hypertension; prostate cancer; and obstructive sleep apnea, on CPAP at home. 4. Hypokalemia. 5. Hypophosphatemia. 6. Hypomagnesemia. PLAN: 1. NG tube was discontinued today, pulled out in the room. Continue the patient on diet and advance as tolerated. 2. Continue bowel regimen and monitoring for return of bowel function. Once the patient has return of bowel function, he will be ready for discharge. 3. Continue current pain regimen, stable. 4. Encourage use of ICS, wean O2 as tolerated. 5. Replace potassium, phosphorus, and magnesium. 6. Discontinue fluid. The patient was seen and examined by Dr. Oswaldo Ramos, who agrees with the plan above. Job ID: [id number] [facility]
[2018-07-05] MEDS: Senokot 8.6 MG TAB PO SCH (21:11)
--- NOTE | 2018-07-05 22:15 | PRG ---
DATE OF SERVICE: 07/05/2018 SUBJECTIVE: Mr. Fair continues to improve postoperatively. He has good bowel sounds today. He has not passed flatus yet. His NG tube is out, and he has been started on liquids. OBJECTIVE: VITAL SIGNS: Temperature 97.1, pulse 102, and blood pressure 145/85. GENERAL: He is in no acute distress. LUNGS: Clear to auscultation bilaterally. HEART: Regular rate and rhythm without murmur. ABDOMEN: Soft, nontender, and minimally distended. Bowel sounds are present. EXTREMITIES: No lower extremity edema. LABORATORY DATA: White blood cell count is 8.4 and hemoglobin 13.5. Creatinine 0.97. IMPRESSION: Sigmoid volvulus, status post surgical resection of redundant colon. RECOMMENDATIONS: Continue postoperative care per General Surgery recommendations. I will sign off for now. Please call if GI can be of assistance. Job ID: [id number]
--- NOTE | 2018-07-06 06:42 | PDOC.FM ---
- Subjective Subjective: Pt feels well this AM, has not had BM yet or flatus. Pain well controlled. Ambulating frequently. - Objective Vital Signs & Weight: Vital Signs (12 hours) Temp Pulse Resp BP Pulse Ox 07/06/18 04:00 97.7 F 89 17 124/68 97 07/06/18 00:00 98.5 F 97 17 134/76 95 07/05/18 20:00 97.1 F L 102 H 18 145/85 H 97 Weight Admit Weight 96.162 kg Weight 96.162 kg I&O: 07/04/18 07/05/18 07/06/18 06:59 06:59 06:59 Intake Total 60 2610 860 Output Total 1800 910 60 Balance -1740 1700 800 Result Diagrams: 07/05/18 05:58 07/05/18 05:58 Phys Exam - Physical Examination Constitutional: NAD Respiratory: no wheezing, clear to auscultation bilateral Cardiovascular: RRR, no significant murmur Gastrointestinal: soft, no distention, positive bowel sounds Musculoskeletal: no edema, pulses present Neurological: moves all 4 limbs Psychiatric: normal affect, A&O x 3 Dx/Plan (1) Sigmoid volvulus Status: Acute (2) HTN (hypertension) Code(s): I10 - ESSENTIAL (PRIMARY) HYPERTENSION Status: Chronic (3) History of prostate cancer Code(s): Z85.46 - PERSONAL HISTORY OF MALIGNANT NEOPLASM OF PROSTATE Status: Chronic (4) Migraine headache Code(s): G43.909 - MIGRAINE, UNSP, NOT INTRACTABLE, WITHOUT STATUS MIGRAINOSUS Status: Chronic (5) MONICA on CPAP Code(s): G47.33 - OBSTRUCTIVE SLEEP APNEA (ADULT) (PEDIATRIC); Z99.89 - DEPENDENCE ON OTHER ENABLING MACHINES AND DEVICES Status: Chronic (6) Seasonal allergies Code(s): J30.2 - OTHER SEASONAL ALLERGIC RHINITIS Status: Chronic (7) Chronic back pain Code(s): M54.9 - DORSALGIA, UNSPECIFIED; G89.29 - OTHER CHRONIC PAIN Status: Chronic - Plan Plan: This is a 67 yo male with a pmh HTN, MONICA on CPAP, hx of prostate cancer s/p prostectomy, and chronic back pain POD #3 s/p sigmoidectomy 2/2 Sigmoid volvulus -Sigmoidoscopy by Dr. Carlos shows volvulus, s/p decompression -Dr. Ramos General Surgery consulted, appreciate recommendations - 07/03/18 sigmoidectomy with colocolostomy -Pain well controlled with hydromorphone -Meropenem discontinued -Advance diet per GS recommendations -Incentive spirometry at bedside Hypophosphatemia -Being monitored and replaced HTN -Lifestyle controlled -Will monitor MONICA Hepatic mass in liver on CT -CT in [place], 1.6 cm peripherally enhancing liver mass -Likely requires outpt work up Hx of prostate cancer s/p prostectomy Seasonal allergies Chronic back pain -Morphine for pain Hx Headaches -continue topiramate PCP: Mickey Ppx: Lovenox, SCDs Dispo: Most likely home today or tomorrow once patient has BM or flatus Addendum - Attending - Attending Attestation Date/Time: 07/06/18 4281 I personally evaluated the patient and discussed the management with Dr. Ibrahima Grewal I agree with the History, Examination, Assessment and Plan documented above with any addition or exceptions noted below.
[2018-07-06 08:10] LABS: Phosphorus 2.1 mg/dL (2.3-4.7)
[2018-07-06] MEDS: Senokot 8.6 MG TAB PO SCH ×2 (08:13→21:03)
[2018-07-06] MEDS: Topiramate 25 MG TAB PO SCH ×2 (08:13→21:04)
[2018-07-06] MEDS: Enoxaparin Sodium 40 MG/0.4 ML SYRINGE SC SCH (08:13)
[2018-07-06] MEDS ORDERED: traMADol HCl 50 MG TAB PO PRN ×2 (13:56)
[2018-07-06] MEDS ORDERED: Polyethylene Glycol 3350 17 GM Packet PO SCH (14:00)
[2018-07-06] MEDS ORDERED: Acetaminophen 500 MG TAB PO SCH (14:00)
--- NOTE | 2018-07-06 14:51 | PRG ---
DATE OF SERVICE: 07/06/2018 SUBJECTIVE: The patient is currently on the surgical floor. He is status post exploratory laparotomy with sigmoidectomy with primary colocolostomy. The patient had no issues overnight. This morning, he has walked multiple times unassisted. He is tolerating his liquid diet, but still denies any flatus or bowel movement. The patient states that his pain is controlled. OBJECTIVE: VITAL SIGNS: Temperature is 98.3, heart rate 92, respirations 18, oxygen saturation 97% on room air, blood pressure 121/77. GENERAL: The patient has just returned from ambulating. He is resting comfortably, sitting in the chair beside his bed. He is awake, alert, and oriented x3. LUNGS: Clear to auscultation with good inspiratory and expiratory effort. HEART: Regular rate and rhythm. ABDOMEN: Soft with active bowel sounds and no peritoneal signs. EXTREMITIES: Neurovascularly intact x4. LABORATORY DATA: There are no labs or radiographs to review this morning. ASSESSMENT: 1. Status post exploratory laparotomy with sigmoidectomy and primary colocolostomy. 2. Non-incarcerated umbilical and left inguinal hernia. 3. History of hypertension, prostate cancer, and obstructive sleep apnea, on CPAP at home. PLAN: Plan will be to continue supportive care. We will discontinue his IV fluids and his [employer] and switch him to p.o. pain medications. Re-evaluate again tomorrow. The patient is likely be able to discharge home once his bowel function has returned. The patient was evaluated this morning with Dr. Ramos. Job ID: [id number]
[2018-07-06] MEDS: Acetaminophen 500 MG TAB PO SCH ×2 (15:11→21:04)
[2018-07-06] MEDS: Ibuprofen 200 MG TAB PO SCH ×2 (15:11→21:03)
[2018-07-07] MEDS: Acetaminophen 500 MG TAB PO SCH ×2 (04:57→09:58)
[2018-07-07] MEDS: Ibuprofen 200 MG TAB PO SCH ×2 (05:00→13:06)
--- NOTE | 2018-07-07 05:45 | PDOC.FM ---
- Subjective Subjective: Patient feels well this morning, pain well controlled 07/03. Ambulating. Stooled 2x yesterday, loose per patient. No other complaints. - Objective Vital Signs & Weight: Vital Signs (12 hours) Temp Pulse Resp BP BP Pulse Ox 07/07/18 04:26 97.5 F L 85 16 130/80 93 L 07/07/18 00:10 97.3 F L 83 16 126/79 95 07/06/18 20:00 98.0 F 79 16 137/90 97 Weight Admit Weight 96.162 kg Weight 96.162 kg I&O: 07/05/18 07/06/18 07/07/18 06:59 06:59 06:59 Intake Total 2610 860 500 Output Total 910 60 40 Balance 1700 800 460 Result Diagrams: 07/05/18 05:58 07/05/18 05:58 Phys Exam - Physical Examination Constitutional: NAD HEENT: moist MMs Neck: no nodes, supple Respiratory: no wheezing, clear to auscultation bilateral Cardiovascular: RRR, no significant murmur, no rub Gastrointestinal: soft, no distention, positive bowel sounds appropriately TTP, no rebound or guarding Musculoskeletal: no edema, pulses present Neurological: non-focal, moves all 4 limbs Psychiatric: normal affect, A&O x 3 Skin: no rash, normal turgor, cap refill <2 seconds Dx/Plan (1) Sigmoid volvulus Status: Acute (2) HTN (hypertension) Code(s): I10 - ESSENTIAL (PRIMARY) HYPERTENSION Status: Chronic (3) History of prostate cancer Code(s): Z85.46 - PERSONAL HISTORY OF MALIGNANT NEOPLASM OF PROSTATE Status: Chronic (4) Migraine headache Code(s): G43.909 - MIGRAINE, UNSP, NOT INTRACTABLE, WITHOUT STATUS MIGRAINOSUS Status: Chronic (5) MONICA on CPAP Code(s): G47.33 - OBSTRUCTIVE SLEEP APNEA (ADULT) (PEDIATRIC); Z99.89 - DEPENDENCE ON OTHER ENABLING MACHINES AND DEVICES Status: Chronic (6) Seasonal allergies Code(s): J30.2 - OTHER SEASONAL ALLERGIC RHINITIS Status: Chronic (7) Chronic back pain Code(s): M54.9 - DORSALGIA, UNSPECIFIED; G89.29 - OTHER CHRONIC PAIN Status: Chronic - Plan Plan: POD #4 s/p sigmoidectomy 2/2 Sigmoid volvulus -Sigmoidoscopy by Dr. Carlos shows volvulus, s/p decompression -Dr. Ramos General Surgery consulted, appreciate recommendations - 07/03/18 sigmoidectomy with colocolostomy -Pain well controlled with tylenol and ibuprofen -Advance diet per GS recommendations -Incentive spirometry at bedside -BMx2 yesterday Hypophosphatemia -Being monitored and replaced HTN -Lifestyle controlled -Will monitor MONICA Hepatic mass in liver on CT -CT in [place], 1.6 cm peripherally enhancing liver mass -Likely requires outpt work up Hx of prostate cancer s/p prostectomy Seasonal allergies Chronic back pain -Morphine for pain Hx Headaches -continue topiramate PCP: Mickey Ppx: Lovenox, SCDs Dispo: Most likely discharge today, pending recommendations. Patient will need to follow up with Dr. Arevalo PCP for Liver mass (1.6 cm, peripherally enhancing, seen on CT). Addendum - Attending - Attending Attestation Date/Time: 07/07/18 4284 I personally evaluated the patient and discussed the management with Dr. Eliud Grewal I agree with the History, Examination, Assessment and Plan documented above with any addition or exceptions noted below. Upon d/c will notify directly Patients PCP of further f/u of incidental found enhancing 1.6 cm hepatic lesion.
[2018-07-07] MEDS: Topiramate 25 MG TAB PO SCH (08:35)
[2018-07-07] MEDS: Senokot 8.6 MG TAB PO SCH (08:35)
[2018-07-07] MEDS: Enoxaparin Sodium 40 MG/0.4 ML SYRINGE SC SCH (08:36)
[2018-07-07] MEDS ORDERED: Polyethylene Glycol 3350 17 GM Packet PO SCH (09:00)
[2018-07-07 11:31] VITALS: BP 130/89; TEMP 98.3
--- NOTE | 2018-07-07 13:04 | PRG ---
DATE OF SERVICE: 07/07/2018 SUBJECTIVE: The patient is a 67-year-old male status post ex lap with sigmoidectomy with primary colocolostomy. No acute events overnight. He has had three bowel movements as of last night including this morning. He has been tolerating his p.o. diet well. He has been ambulating with no other complaints in regard to the pain. OBJECTIVE: VITAL SIGNS: Temperature 98.3, pulse 80, respirations 18, O2 saturation 97% on room air, blood pressure 130/89. GENERAL: The patient is resting comfortably in bed. He is awake, alert, and oriented x3. GCS 15. LUNGS: Clear to auscultation. Good inspiratory expiratory effort. HEART/CARDIOVASCULAR: Regular rate and rhythm. No rubs, murmurs, or gallops. ABDOMEN: Soft with active bowel sounds. Has placement of MAYNOR drain in the left abdomen with serosanguineous drainage. EXTREMITIES: Neurovascularly intact x4. Moves all extremities without issues. LABORATORY DATA: No new labs to review this morning. IMPRESSION: 1. Status post exploratory laparotomy with sigmoidectomy and primary colocolostomy. 2. Non-incarcerated umbilical and left inguinal hernia. 3. History of hypertension; prostate cancer; obstructive sleep apnea, on CPAP at home. PLAN: As the patient is able to tolerate a diet and his bowel activity has resumed, he is good for discharge home today. We will plan on removing his MAYNOR drain today since drainage has significantly decreased. If not, we will see him in clinic in about 10 days and remove it at that time. Trauma Team and General Surgery are signing off at this time. Thank you for allowing us to partake in the care of this patient. The patient was discussed with Dr. Ramos, who agrees with the findings above. Depending on stability will be seen later on today. Job ID: [id number]
--- NOTE | 2018-07-08 15:07 | DIS ---
DATE OF ADMISSION: 07/01/2018 DATE OF DISCHARGE: 07/07/2018 RESIDENT: Michelle Grewal MD. ADMITTING ATTENDING: Dr. Bong Carlos. DISCHARGE ATTENDING: Dr. Jaleel Leon. CONSULTS: 1. Dr. Stewart Carlos on 07/02/2018. 2. General Surgery, Dr. Oswaldo Ramos. PROCEDURES: 1. Abdomen x-ray on 07/01/2018, abnormally dilated loop of upward migrating sigmoid colon. 2. Flexible sigmoidectomy on 07/01/2018, flexible sigmoidoscopy with detorsion of sigmoid volvulus and placement of colonic decompression tube by Dr. Stewart Carlos. 3. Abdominal x-ray on 07/12, impression; nonobstructive bowel gas pattern, rectal tube in left colon. 4. Sigmoidectomy with colocolostomy on 07/03/[address] Oswaldo Ramos, exploratory laparotomy with sigmoidectomy with primary colocolostomy. PRIMARY DIAGNOSIS: Sigmoid volvulus, s/p sigmoidectomy with colocolostomy. SECONDARY DIAGNOSES: 1. Hypophosphatemia. 2. Hypertension. 3. Obstructive sleep apnea. 4. Hepatic mass in liver on CT. 5. Prostate cancer, status post prostatectomy. 6. Seasonal allergies. 7. Chronic back pain. 8. Headaches. DISCHARGE MEDICATIONS: 1. Tylenol 1000 mg p.o. t.i.d. p.r.n. for pain. 2. Topiramate 1 tablet p.o. b.i.d. 3. Multivitamin p.o. daily. 4. Vitamin B12 1000 mcg p.o. daily. 5. Fenofibrate 160 mg p.o. daily. 6. Aspirin 81 mg p.o. daily. 7. Krill oil one tablet oral daily. 8. Claritin 10 mg p.o. daily. 9. Flovent 50 mcg HFA b.i.d. 10. Omeprazole 40 mg p.o. daily. 11. Etodolac 200 mg p.o. b.i.d. 12. Polyethylene glycol 17 g p.o. as directed. DISCONTINUED MEDICATIONS: None. HISTORY OF PRESENT ILLNESS/HOSPITAL COURSE: This is a 67-year-old male who presented as a transfer from [facility] with a history of hypertension and obstructive sleep apnea, who presented with a chief complaint of abdominal pain. The patient reported for the past couple of days, his stomach has been hurting. However at 7:45 in the morning of his admission, it became excruciating. He reported he was unable to walk without significant pain. He reported the pain was in his middle of the stomach and described as a burning sensation with associated nausea, but no vomiting. He rated it currently at 2/10; however, early this morning, it was 10/ 10. He has not taken any medications for the pain, denies any prior history, denied any precipitating or relieving factors. Over the past 2 days, he describes it as a stomachache in the middle of his stomach. In the ER, the patient underwent a CT scan significant for sigmoid volvulus. General Surgery and GI were both consulted. The patient underwent flexible sigmoidoscopy with detorsion of the sigmoid colon as well as placement of a decompression tube. The patient was admitted to the hospital. The patient had sigmoidectomy with colocolostomy on 07/03/2018 with placement of a drain. The patient's diet was advanced over the next few days and pain was well controlled. The patient was discharged in stable condition after eating and having flatus and 2 bowel movements. During his stay, the patient developed hypophosphatemia, which was replaced with oral PHOS-NaK. The patient's hypertension was controlled by diet and lifestyle and was stable throughout his stay. The patient was on CPAP at night for obstructive sleep apnea. The patient will need follow-up for hepatic mass seen on liver CT in [place]. It was a 1.6 cm peripherally enhancing liver mass. This will likely require outpatient workup. DISPOSITION: Stable. DISCHARGE INSTRUCTIONS: 1. Location: Home. 2. Diet: Continue liquid diet and advance to soft foods and then regular as tolerated. Avoid spicy foods. 3. Activity: No bending, pulling, lifting greater than 10 pounds. May shower, but avoid direct water to the incision site. Keep incision clean and dry. Clean incision with warm water and mild soap, pat dry and apply dry gauze and tape over the site for comfort. No bar soap, tub baths, oils, or lotion to the incision site. Activity as tolerated. Notify surgeon if incision draining, foul odor, or uncontrollable pain. 4. Follow up with Dr. Oswaldo Ramos in 10 days. 5. Follow up with Dr. Gary Arevalo in 7 days. Job ID: [id number] [facility]
== END 2018-07-07 15:51 | disposition home or self-care (01) | DRG 329 ==
LOC: ERS 11:18 → SURG A 13:40
PROVIDERS: ADMIT Internal Medicine Gastroenterology; ATTEND Internal Medicine Gastroenterology
PROC: 0D7N8ZZ Dilation of Sigmoid Colon, Via Natural or Artificial Opening Endoscopic (ICD-10-PCS; 2018-07-01)
PROC: 0DBN0ZZ Excision of Sigmoid Colon, Open Approach (ICD-10-PCS; principal; 2018-07-03)
DX: Q43.8 Other specified congenital malformations of intestine (principal); K56.2 Volvulus; I10 Essential (primary) hypertension; G47.33 Obstructive sleep apnea (adult) (pediatric); G89.29 Other chronic pain; M54.9 Dorsalgia, unspecified; M19.90 Unspecified osteoarthritis, unspecified site; K42.9 Umbilical hernia without obstruction or gangrene; K40.90 Unilateral inguinal hernia, without obstruction or gangrene, not specified as recurrent; E87.6 Hypokalemia; E83.39 Other disorders of phosphorus metabolism; E83.42 Hypomagnesemia; K59.09 Other constipation; K76.9 Liver disease, unspecified; G43.909 Migraine, unspecified, not intractable, without status migrainosus; J30.2 Other seasonal allergic rhinitis; Z98.890 Other specified postprocedural states; Z85.46 Personal history of malignant neoplasm of prostate; Z79.82 Long term (current) use of aspirin; Z79.899 Other long term (current) drug therapy
CPT/HCPCS: 36415; 74018; 74019; 80048; 83605; 83735; 84100; 85025; 85610; 85730; 86850; 86900; 86901; 88307; 93005; J0131; J1650; J1885; J2001; J2185; J2405; J2704; J3010; J3475; J3490; J7050